=== PATIENT | male | born 1980 | race Caucasian/White ===

== ENCOUNTER → 2019-02-24 05:00 | Outpatient (REF) | payer MEDICAID, SELFPAY ==
[2019-02-24 07:22] LABS: Hemoglobin 10.2 g/dL (13.0-16.5); Mean Corpuscular Hgb 28.6 pg (27.0-32.0); Mean Corpuscular Volume 95.2 fL (80-94); Mean Platelet Vol. 10.2 fl (6.2-12.0); Platelet Count 313 K/mm3 (150-450); RBC Distribution Width CV 17.3 % (11.6-14.6); RBC Distribution Width SD 59.3 fl (35.1-43.9); Red Blood Count 3.57 M/mm3 (4.6-6.2)
[2019-02-24 07:58] LABS: ALB/GLOB Ratio 0.7 RATIO (0.9-2.4); AST(SGOT) 19 U/L (15-37); Alanine Aminotransfer ALT/SGPT 28 U/L (16-61); Albumin, Serum 2.6 g/dL (3.2-5.0); Alkaline Phosphatase 134 U/L (45-117); Amylase 16 U/L (25-115); Anion Gap 5 (5-15); BUN 13 mg/dL (7-18); Calcium,Total 8.6 mg/dL (8.5-10.1); Chloride 105 mmol/L (98-107); Creatinine, Serum 0.65 mg/dL (0.70-1.30); EST Glomerular Filtration Rate 146 mL/min (>60); Est Glom Filt Rate - Afr Amer 177 mL/min (>60); Globulin 3.8 g/dL (2.2-4.2); Glucose 103 mg/dL (74-106); Lipase 56 U/L (73-393); Potassium 4.1 mmol/L (3.5-5.1); Protein, Total 6.4 g/dL (6.4-8.2); Sodium Level 139 mmol/L (136-145); Thyroid Stim Hormone (TSH) 0.62 uIU/mL (0.358-3.74)
[2019-02-24 08:22] LABS: Vitamin D,25 Hydroxy 19.5 ng/mL (29.95-100.01)
== END ==
LOC: OLS.ACW200 05:00
PROVIDERS: Visit Provider Family Medicine
DX: A41.9 Sepsis, unspecified organism (principal); K65.1 Peritoneal abscess; D72.829 Elevated white blood cell count, unspecified; E46 Unspecified protein-calorie malnutrition; K86.1 Other chronic pancreatitis; K86.89 Other specified diseases of pancreas
CPT/HCPCS: 36415; 80053; 82150; 82306; 83690; 84443; 85027